=== PATIENT | male | born 1965 | race Two or more races ===

== ENCOUNTER 2017-09-18 09:30 | Day surgery (SDC) | payer OTHER ==
[2017-09-16 15:06] LABS: PLATELET COUNT 213 x10^3mcL (130-400); RED CELL DISTRIBUTION WIDTH 13.5 % (11.5-14.5)
[2017-09-16 15:31] LABS: ALKALINE PHOSPHATASE 84 U/L (46-116); ALT/SGPT 24 U/L (16-63); AST/SGOT 12 U/L (15-37); BILIRUBIN TOTAL 0.6 mg/dL (0.20-1.00); CALCIUM 9.3 mg/dL (8.5-10.1); CARBON DIOXIDE 27.6 mmol/L (21-32); CHLORIDE SERUM 106 mmol/L (98-107); CHOLESTEROL 190 mg/dL (<200); CREATININE SERUM 0.8 mg/dL (0.7-1.3); GFR1 > 60 mL/min; GLUCOSE SERUM 102 mg/dL (74-106); LACTIC DEHYDROGENASE (LDH) 185 U/L (100-190); PHOSPHOROUS 3.7 mg/dL (2.5-4.9); POTASSIUM SERUM 4.4 mmol/L (3.5-5.1); SODIUM SERUM 143 mmol/L (136-145); TOTAL PROTEIN, SERUM 7.8 g/dL (6.4-8.2); URIC ACID 4.6 mg/dL (3.5-7.2)
[~2017-09-18] VITALS: Ht 172.7 cm; Wt 78.9 kg
[2017-09-18 09:57] VITALS: BP 116/73
[2017-09-18 15:00] VITALS: BP 108/61
== END 2017-09-18 14:50 | disposition home or self-care (01) ==
LOC: DS 09:30 → OR 12:00 → DS 14:50
PROVIDERS: Surgery
PROC: 0JBL0ZX Excision of Right Upper Leg Subcutaneous Tissue and Fascia, Open Approach, Diagnostic (ICD-10-PCS; 2017-09-18)
PROC: 0JQL0ZZ Repair Right Upper Leg Subcutaneous Tissue and Fascia, Open Approach (ICD-10-PCS; principal; 2017-09-18 12:00)
DX: L72.0 Epidermal cyst (principal); E11.9 Type 2 diabetes mellitus without complications; Z79.84 Long term (current) use of oral hypoglycemic drugs; Z89.411 Acquired absence of right great toe; Z89.421 Acquired absence of other right toe(s)
CPT/HCPCS: 82962; J0690; J2250; J2704; J3010; J3490; J7030

== ENCOUNTER → 2017-11-26 | Outpatient (CLI) | payer OTHER ==
[2017-11-26 07:52] LABS: BASOPHIL % 0.7 % (0-2); PLATELET COUNT 206 x10^3mcL (130-400); RED CELL DISTRIBUTION WIDTH 13.7 % (11.5-14.5)
[2017-11-26 08:08] LABS: ALKALINE PHOSPHATASE 79 U/L (46-116); ALT/SGPT 34 U/L (16-63); AMYLASE 45 U/L (25-115); AST/SGOT 25 U/L (15-37); BILIRUBIN TOTAL 0.72 mg/dL (0.20-1.00); CALCIUM 9.3 mg/dL (8.5-10.1); CARBON DIOXIDE 30.5 mmol/L (21-32); CHLORIDE SERUM 105 mmol/L (98-107); CREATININE SERUM 0.9 mg/dL (0.7-1.3); GFR1 > 60 mL/min; GLUCOSE SERUM 115 mg/dL (74-106); LIPASE 275 IU/L (73-393); POTASSIUM SERUM 4.5 mmol/L (3.5-5.1); SODIUM SERUM 144 mmol/L (136-145); TOTAL PROTEIN, SERUM 7.8 g/dL (6.4-8.2)
[2017-11-26 08:15] LABS: FREE T4 0.85 ng/dL (0.76-1.46); FREE THYROXINE INDEX 2.8 ug/dL (1.4-4.5); T4(THYROXINE) 8.6 ug/dL (4.7-13.3)
[2017-11-26 08:25] LABS: T3 TOTAL 1.12 ng/mL
[2017-11-27 08:17] LABS: CARBOHYDRATE AG 19-9 5 U/mL (0-35)
== END | disposition home or self-care (01) ==
LOC: LB 07:13
PROVIDERS: Family Medicine
DX: E11.9 Type 2 diabetes mellitus without complications (principal)
CPT/HCPCS: 84439